=== PATIENT | female | born 1980 | race Caucasian/White ===

== ENCOUNTER → 2017-08-08 | Outpatient (CLI) | payer BC, OTHER ==
[2017-08-08 11:01] LABS: Basophils % (A) 0 %; Eosinophils # (A) 0.3 k/uL (0-0.7); Eosinophils % (A) 5 %; HCT 38.6 % (34.0-46.0); HGB 12.2 gm/dL (11.4-16.0); Lymphocytes # (A) 2.2 k/uL (1.0-4.8); Lymphocytes % (A) 32 %; MCHC 31.7 g/dL (31.0-37.0); MCV 91.7 fL (80.0-100.0); Mean Platelet Volume 7.9; Monocytes # (A) 0.5 k/uL (0-1.0); Monocytes % (A) 7 %; Neutrophils # (A) 3.7 k/uL (1.3-7.7); Neutrophils % (A) 54 %; Platelet Count 207 k/uL (150-450); RBC 4.22 m/uL (3.80-5.40); RDW 14.7 % (11.5-15.5); WBC 6.9 k/uL (3.8-10.6)
[2017-08-08 11:08] LABS: Potassium 4.5 mmol/L (3.5-5.1)
== END | disposition home or self-care (01) ==
LOC: LABPAT 10:17
PROVIDERS: ATTEND Orthopaedic Surgery
DX: Z01.818 Encounter for other preprocedural examination (principal); Z01.812 Encounter for preprocedural laboratory examination; M23.91 Unspecified internal derangement of right knee
CPT/HCPCS: 36415; 80051; 85025; 93005

== ENCOUNTER 2017-08-29 08:02 | Day surgery (SDC) | payer BC, OTHER ==
[2017-08-21 15:17] VITALS: BMI 51.4
--- NOTE | 2017-08-28 12:41 | HP ---
HISTORY AND PHYSICAL DATE OF SERVICE: 08/29/2017 Jennifer Lewis is a 37-year-old patient seen with right knee pain. We discussed options for treatment. She elected to proceed with right knee arthroscopy. Consent was obtained. PAST MEDICAL HISTORY: Seasonal allergies. PAST SURGICAL HISTORY: Cholecystectomy, right knee arthroscopy. DAILY MEDICATIONS: 1. Naprosyn. 2. Zyrtec. ALLERGIES: None reported. SOCIAL HISTORY: Patient currently smokes 1/2 pack of cigarettes daily. PHYSICAL EVALUATION RIGHT KNEE: Range of motion 0 to 115 degrees. Mild effusion. Tenderness medial joint line, tenderness lateral joint line. Positive medial Aaron's. Positive lateral Aaron's. Ligaments stable. Hip rotation without pain. Distal neurovascular exam intact. Radiographs of the right knee revealed moderate medial and moderate patellofemoral compartment osteoarthritis. MRI right knee medial meniscal tear and osteoarthritis. IMPRESSION: Internal derangement, right knee with medial meniscal tear. PLAN: Right knee arthroscopy with partial meniscectomy and debridement. MMODL / IJN: [id number] /
[~2017-08-29 08:02] MED LIST: DEXAMETHASONE SOD PHOSPHATE 10 MG/ML 1 ML VIAL IV ONE; LACTATED RINGERS 1,000 ML IV SCH; MIDAZOLAM 2 MG/2 ML VIAL IV PRN; ONDANSETRON 4 MG/2 ML VIAL IVP ONE
[2017-08-29] MEDS ORDERED: LIDOCAINE 1% 20 ML VIAL (10MG/ML) FOR IV START INTRADERMA ONE (08:06)
[2017-08-29] MEDS ORDERED: BUPIVACAINE (PF) 0.25% 30 ML VIAL SQ ONE ×2 (09:57→10:40)
[2017-08-29] MEDS ORDERED: SUCCINYLCHOLINE CHLORIDE VIAL 200 MG/10 ML VIAL IV ONE (10:04)
[2017-08-29] MEDS ORDERED: fentaNYL (PF) 50 MCG/ML 2 ML AMP ONE (10:04)
[2017-08-29] MEDS ORDERED: MIDAZOLAM 2 MG/2 ML VIAL ONE (10:04)
[2017-08-29] MEDS ORDERED: PROPOFOL 10 MG/ML 20 ML VIAL IV ONE (10:04)
[2017-08-29] MEDS ORDERED: LIDOCAINE 1% INJ 10MG/ML (20 ML MDV) ONE (10:04)
[2017-08-29] MEDS: HYDROmorphone 0.5 MG/0.5 ML SYRINGE IVP PRN ×4 (11:02→11:24)
--- NOTE | 2017-08-29 11:02 | P.OP ---
Date of Procedure: 08/29/17 Preoperative Diagnosis: Internal derangement right knee Postoperative Diagnosis: 1. Tear medial and lateral meniscus right knee 2. Grade 4 chondromalacia medial femoral condyle right knee 3. Grade 3/4 chondromalacia patella right knee 4. Reactive synovitis medial and suprapatellar compartments right knee Procedure(s) Performed: 1. Arthroscopic partial medial and lateral meniscectomy right knee 2. Arthroscopic chondroplasty medial femoral condyle right knee 3. Arthroscopic microfracture medial femoral condyle right knee 4. Arthroscopic chondroplasty lateral femoral condyle right knee 5. Arthroscopic partial synovectomy medial and suprapatellar compartments right knee Anesthesia: JOSE ALBERTOA, local Surgeon: Derrek Preston Estimated Blood Loss (ml): 10 Pathology: none sent Condition: stable Disposition: PACU Indications for Procedure: 37-year-old patient seen with progressive right knee pain. After having treatment options discussed, she elected to proceed with arthroscopy. Operative Findings: see description of procedure Description of Procedure: Patient was taken to the operative suite. Patient underwent a general anesthetic by the department of anesthesia. Patient was given preoperative antibiotics. The right lower extremity was placed in a well-padded arthroscopic leg marmolejo. The right leg was prepped and draped in the normal sterile orthopedic fashion. A lateral parapatellar and suprapatellar incision was made. Trochars were inserted. Arthroscopy was initiated. Suprapatellar pouch revealed diffuse thick reactive synovitis. The patellofemoral joint appeared to articulate congruently. There was grade 3/4 chondromalacia of both the patella and femoral sulcus with osteochondral tears present. The scope was guided into the medial gutter. No loose bodies or plica were identified. The scope was then guided into the medial compartment. A medial parapatellar incision was made. Trocar inserted followed by probe. There was a complex tear posterior horn medial meniscus. There were grade 4 chondromalacia changes of the medial femoral condyle with large osteochondral tears. There was grade 2 /3 chondromalacia tibial plateau. There was reactive synovitis anteriorly. I performed a partial medial meniscectomy down to stable tissue I performed a chondroplasty of the medial femoral condyle and partial synovectomy. There was grade 4 chondromalacia with exposed bone along the weightbearing surface medial femoral condyle. I performed a microfracture there. I debrided the edges again making sure we had no debris or unstable areas. The residual meniscus and osteochondral surface was found to be stable. Scope and probe were then guided into the intercondylar notch. Cruciates were identified, probed and found to be stable. The scope and probe were then guided into lateral compartment. There was a radial tear along the anterior horn lateral meniscus. There were grade 1/2 chondral malacia changes lateral compartment. No loose bodies or reactive synovitis. I debrided that meniscal tear down to stable tissue. The residual meniscus was stable. The scope was in guided back into the suprapatellar compartment. I introduced a motorized shaver into the super patellar compartment. I debrided some piecemeal fragments of meniscus. I performed a chondroplasty of the patella and femoral sulcus down to stable tissue. The residual osteochondral surface was stable. I now reintroduced the shaver and performed a partial synovectomy. Shaver was removed. I took more look on the entire knee, no residual debris. Instruments were now removed from the joint. The joint was infiltrated with .25% Marcaine. Steri-Strips were applied to the portal sites. Sterile dressings were applied. The patient was placed into a KRYSTAL hose. No tourniquet was utilized. The patient was awakened, transferred to a bed and taken to recovery stable satisfactory condition.
[2017-08-29 11:06] VITALS: TEMP 97.5
[2017-08-29] MEDS ORDERED: ONDANSETRON 4 MG/2 ML VIAL IVP ONE (11:07)
[2017-08-29] MEDS ORDERED: LACTATED RINGERS 1,000 ML IV ONE (11:12)
[2017-08-29] MEDS ORDERED: HYDROcodone/APAP 10-325MG 1 EACH TAB PO ONE (12:41)
[2017-08-29 13:04] VITALS: BP 135/79; RESP 18
[2017-08-29 13:20] VITALS: PULSE 54
== END 2017-08-29 14:18 | disposition home or self-care (01) ==
LOC: OR 08:02
PROVIDERS: ATTEND Orthopaedic Surgery
DX: S83.241A Other tear of medial meniscus, current injury, right knee, initial encounter (principal); S83.281A Other tear of lateral meniscus, current injury, right knee, initial encounter; X58.XXXA Exposure to other specified factors, initial encounter; M22.41 Chondromalacia patellae, right knee; M65.861 Other synovitis and tenosynovitis, right lower leg; Z79.1 Long term (current) use of non-steroidal anti-inflammatories (NSAID); Z79.899 Other long term (current) drug therapy; K21.9 Gastro-esophageal reflux disease without esophagitis; Z79.891 Long term (current) use of opiate analgesic; F17.210 Nicotine dependence, cigarettes, uncomplicated
CPT/HCPCS: 81025; 29880; 29879; J2250; J0330; J1100; J0690; J2405; J2001; J3010; J2704; J1170

== ENCOUNTER → 2017-12-28 | Outpatient (CLI) | payer BC, OTHER ==
--- NOTE | 2017-12-28 10:39 | MM ---
Reason for exam: screening (asymptomatic). Baseline mammogram. History: Took hormonal contraceptives for 1 year beginning at age 22. Physical Findings: Nurse did not find any significant physical abnormalities on exam. MG Screening Mammo w CAD Bilateral CC and MLO view(s) were taken. There are scattered fibroglandular densities. Finding: There are few typically benign round calcifications in the anterior position of both breasts. There is no discrete abnormality. These results were verbally communicated with the patient and result sheet given to the patient on 12/28/17. ASSESSMENT: Benign, BI-RAD 2 RECOMMENDATION: Routine screening mammogram of both breasts at age 39.
== END | disposition home or self-care (01) ==
LOC: RADMAMWWP 09:50
PROVIDERS: ATTEND Obstetrics & Gynecology
DX: Z12.31 Encounter for screening mammogram for malignant neoplasm of breast (principal)
CPT/HCPCS: 77067

== ENCOUNTER → 2018-04-03 | Outpatient (CLI) | payer OTHER ==
--- NOTE | 2018-04-03 18:43 | US ---
EXAMINATION TYPE: US venous doppler duplex LE DATE OF EXAM: 04/03/2018 6:21 PM COMPARISON: NONE CLINICAL HISTORY: M79.89 Bilateral leg swelling.bilateral edema SIDE PERFORMED: Bilateral TECHNIQUE: The lower extremity deep venous system is examined utilizing real time linear array sonog tommy with graded compression, doppler sonography and color-flow sonography. VESSELS IMAGED: External Iliac Vein (EIV) Common Femoral Vein Deep Femoral Vein Greater Saphenous Vein * Femoral Vein Popliteal Vein Small Saphenous Vein * Proximal Calf Veins (* superficial vessels) Right Leg: Negative for DVT Left Leg: Negative for DVT No evidence of DVT bilateral legs. IMPRESSION: Negative exam. No evidence of deep venous thrombosis in both legs.
== END | disposition home or self-care (01) ==
LOC: RADUSMAIN 17:52
PROVIDERS: ATTEND Family Medicine
DX: M79.89 Other specified soft tissue disorders (principal)
CPT/HCPCS: 93970

== ENCOUNTER → 2018-06-11 | Outpatient (CLI) | payer OTHER ==
--- NOTE | 2018-06-12 07:52 | MR ---
EXAMINATION TYPE: MR brain wo con DATE OF EXAM: 06/11/2018 COMPARISON: NONE HISTORY: F/u Pseudo tumor, optic atrophy TECHNIQUE: Multiplanar, multisequence imaging of the brain and brainstem is performed without IV cont rast. FINDINGS: Diffusion weighted images demonstrate no evidence of a recent infarct or other diffusion abnormality. There is no extraaxial fluid collection or significant white matter signal abnormality. The ventricu lar system and cisternal spaces are normal in size and appearance. The brain volume is age appropria te. Midline structures demonstrate empty sella appearance . The craniocervical junction appears within n ormal limits. Normal vascular flow voids are present. The globes appear intact bilaterally. Optic ner ves appear symmetric intraconal region bilaterally. IMPRESSION: Empty sella appearance otherwise unremarkable study.
== END | disposition home or self-care (01) ==
LOC: RADMRIMAIN 20:15
PROVIDERS: ATTEND Psychiatry & Neurology Neurology
DX: E23.6 Other disorders of pituitary gland (principal)
CPT/HCPCS: 70551

== ENCOUNTER → 2019-08-14 | Outpatient (CLI) | payer OTHER ==
--- NOTE | 2019-08-15 06:09 | MR ---
EXAMINATION TYPE: MR knee LT wo con DATE OF EXAM: 08/14/2019 COMPARISON: None HISTORY: Left knee pain Multiplanar multiecho imaging of the left knee was performed with no contrast. There is large knee joint effusion. The anterior and posterior cruciate ligaments are intact. The med ial and lateral menisci appear intact. There is subcutaneous edema around the knee. There are rounded areas of decreased signal with sharp margins on the T1 images involving the distal femoral metaphysi s. These have high signal on the proton density images and could relate to bone cysts. The collateral ligaments are intact. The patella is intact. I see no fracture. IMPRESSION: Moderate sized knee joint effusion. No evidence of ligament or meniscal tear. Sharply marginated lesi ons in the distal femur probably benign bone cysts.
== END | disposition home or self-care (01) ==
LOC: RADMRIMAIN 14:46
PROVIDERS: ATTEND Orthopaedic Surgery Sports Medicine
DX: M25.462 Effusion, left knee (principal); M89.9 Disorder of bone, unspecified

== ENCOUNTER 2020-05-01 18:15 | Inpatient (IN) | payer OTHER ==
[2020-05-01] MEDS ORDERED: IBUPROFEN 600 MG TAB PO STA (18:34)
[2020-05-01] MEDS ORDERED: ACETAMINOPHEN TAB 325 MG TAB PO STA (18:34)
[2020-05-01 18:58] LABS: Basophils # (A) 0.1 k/uL (0-0.2); Basophils % (A) 1 %; Eosinophils # (A) 0.2 k/uL (0-0.7); Eosinophils % (A) 2 %; HCT 41.4 % (34.0-46.0); HGB 13.2 gm/dL (11.4-16.0); Lymphocytes # (A) 1.4 k/uL (1.0-4.8); Lymphocytes % (A) 13 %; MCH 28.2 pg (25.0-35.0); MCHC 31.9 g/dL (31.0-37.0); MCV 88.2 fL (80.0-100.0); Mean Platelet Volume 7.7; Monocytes # (A) 0.8 k/uL (0-1.0); Monocytes % (A) 7 %; Neutrophils # (A) 8.6 k/uL (1.3-7.7); Neutrophils % (A) 77 %; Platelet Count 209 k/uL (150-450); RBC 4.69 m/uL (3.80-5.40); RDW 13.3 % (11.5-15.5); WBC 11.2 k/uL (3.8-10.6)
[2020-05-01 19:10] LABS: ALT 19 U/L (4-34); AST 31 U/L (14-36); African American GFR (CKD) >90 (>60 ml/min/1.73 sqM); Albumin 3.7 g/dL (3.5-5.0); Alkaline Phosphatase 97 U/L (38-126); Anion Gap 7 mmol/L; Blood Urea Nitrogen 9 mg/dL (7-17); Calcium 8.6 mg/dL (8.4-10.2); Carbon Dioxide 23 mmol/L (22-30); Chloride 103 mmol/L (98-107); Glucose 90 mg/dL (74-99); Non-African American GFR(CKD) 86 (>60 ml/min/1.73 sqM); Sodium 133 mmol/L (137-145); Total Bilirubin 0.6 mg/dL (0.2-1.3); Total Protein 6.6 g/dL (6.3-8.2)
[2020-05-01 19:13] LABS: Potassium 3.9 mmol/L (3.5-5.1)
[2020-05-01 19:40] LABS: Appearance,Urine Cloudy (Clear); Bacteria,Urine Rare /hpf; Bilirubin,Urine Negative (Negative); Blood,Urine Moderate (Negative); Color,Urine Yellow; Glucose,Urine (UA) Negative (Negative); Hyaline Casts,Urine 1 /lpf (0-2); Ketones,Urine Negative (Negative); Leukocyte Esterase,Urine Negative (Negative); Mucus,Urine Rare /hpf; Nitrite,Urine Negative (Negative); PH, Urine 5.5 (5.0-8.0); Protein,Urine Trace (Negative); RBC,Urine <1 /hpf (0-5); Specific Gravity,Urine 1.026 (1.001-1.035); Squamous Epithelial Cell,Urine 12 /hpf (0-4); WBC,Urine 1 /hpf (0-5)
--- NOTE | 2020-05-01 20:08 | US ---
EXAMINATION TYPE: US venous doppler duplex LE RT DATE OF EXAM: 05/01/2020 6:36 PM COMPARISON: US 2018 CLINICAL HISTORY: pain, cellulitius. Right lower leg pain, swelling and redness SIDE PERFORMED: Right TECHNIQUE: The lower extremity deep venous system is examined utilizing real time linear array sonog tommy with graded compression, doppler sonography and color-flow sonography. VESSELS IMAGED: External Iliac Vein (EIV) Common Femoral Vein Deep Femoral Vein Greater Saphenous Vein * Femoral Vein Popliteal Vein Small Saphenous Vein * Proximal Calf Veins (* superficial vessels) Right Leg: Appears negative for DVT IMPRESSION: No evidence of deep vein thrombosis in the right leg.
[2020-05-01] MEDS ORDERED: VANCOMYCIN IV PER PHARMACY 1 EACH MISC MISCELLANE PRN (20:40)
[2020-05-01] MEDS ORDERED: NALOXONE 0.4 MG/ML 1 ML VIAL IV PRN (20:44)
[2020-05-01] MEDS ORDERED: IBUPROFEN 600 MG TAB PO PRN (20:44)
[2020-05-01] MEDS ORDERED: ACETAMINOPHEN TAB 325 MG TAB PO PRN (20:44)
--- NOTE | 2020-05-01 20:48 | ED ---
General Adult HPI - General Chief complaint: Skin/Abscess/Foreign Body Stated complaint: cellulitis Time Seen by Provider: 05/01/20 18:31 Source: patient, RN notes reviewed, old records reviewed Mode of arrival: ambulatory Limitations: no limitations - History of Present Illness Initial comments: 39-year-old female patient resents to emergency department with chief complaint right lower extremity cellulitis ongoing for the last 3 days. Patient has had this before in the past. Has been having some generalized myalgias feeling feverish at home. Denies any cough congestion dysuria or any other infectious symptoms. Denies chest pain shortness of breath. Systemic: Pt denies fatigue, rash. Pt denies weakness, night sweats, weight loss . Neuro: Pt denies headache, visual disturbances, syncope or pre-syncope. HEENT: Pt denies ocular discharge or irritation, otalgia, rhinorrhea, pharyngitis or notable lymphadenopathy. Cardiopulmonary: Pt denies chest pain, SOB, heart palpitations, dyspnea on exertion. Abdominal/GI: Pt denies abdominal pain, n/v/d. : Pt denies dysuria, burning w/ urination, frequency/urgency. Denies new onset urinary or bowel incontinence. MSK: Pt denies myalgia, loss of strength or function in extremities. Neuro: Pt denies new onset weakness, paresthesias. - Related Data Home Medications Medication Instructions Recorded Confirmed Cetirizine HCl [Zyrtec ODT] 10 mg PO DAILY PRN 08/21/17 08/29/17 Ergocalciferol (Vitamin D2) 50,000 unit PO Q7D 08/21/17 08/29/17 [Vitamin D2] Furosemide [Lasix] 20 mg PO DAILY PRN 08/21/17 08/29/17 HYDROcodone/APAP 10-325MG [[place] 1 tab PO Q4HR PRN 08/21/17 08/29/17 10-325] Naproxen 500 mg PO DAILY PRN 08/21/17 08/29/17 Nasal Decongestant 1 sprays NASAL DAILY PRN 08/21/17 08/29/17 Pantoprazole [Protonix] 40 mg PO DAILY PRN 08/21/17 08/29/17 Potassium Chloride [Klor-Con 10] 10 meq PO DAILY PRN 08/21/17 08/29/17 Allergies Allergy/AdvReac Type Severity Reaction Status Date / Time No Known Allergies Allergy Verified 05/01/20 18:25 Review of Systems ROS Statement: Those systems with pertinent positive or pertinent negative responses have been documented in the HPI. ROS Other: All systems not noted in ROS Statement are negative. Past Medical History Additional Past Medical History / Comment(s): CELLULITIS. HIGH CHOLESTROL History of Any Multi-Drug Resistant Organisms: MRSA Date of last positivie culture/infection: 2015 MDRO Source:: RIGHT ARMPIT Additional Past Surgical History / Comment(s): KNEE SURGERY 2018 Past Psychological History: No Psychological Hx Reported Smoking Status: Current every day smoker Past Alcohol Use History: Occasional Past Drug Use History: None Reported General Exam - General Exam Comments Initial Comments: Constitutional: NAD, AOX3, Pt has pleasant affect. HEENT: NC/AT, trachea midline, neck supple, no lymphadenopathy. External ears appear normal, without discharge. Mucous membranes moist. Eyes PERRLA, EOM intact. There is no scleral icterus. No pallor noted. Cardiopulmonary: RRR, no murmurs, rubs or gallops, no JVD noted. Lungs CTAB in anterior and posterior sanderson. No peripheral edema. Abdominal exam: Abdomen soft and non-distended. Abdomen non-tender to palpation in all 4 quadrants. Bowel sounds active in LLQ. No hepatosplenomegaly. No ecchymosis Neuro: CN II-XII grossly intact. No nuchal rigidity. MSK: Right lower extremity cellulitis is noted. Some mild tenderness to the area. Extremities are warm and well-perfused. Distal pulses are intact and equal. No left posterior calf tenderness. Sensation intact in upper and lower extremities. Full active ROM in upper and lower extremities, 5/5 stregnth. Limitations: no limitations Course Vital Signs 05/01/20 05/01/20 18:19 20:05 Temperature 101.4 F H 101.1 F H Pulse Rate 90 87 Respiratory 18 16 Rate Blood Pressure 136/91 113/56 O2 Sat by Pulse 98 100 Oximetry Medical Decision Making - Medical Decision Making 39-year-old female patient with CVG complaint cellulitis. Patient was sent displayed fever patient administered antipyretic. Physical exam confirms a lad andry slid right lower extremity. Left investigations a leukocytosis and left shift. Ultrasound is negative for DVT. Patient initiated on ceftriaxone and vancomycin. Will be admitted for further evaluation. Case discussed with Dr. Walters. Admitted to [facility] - Lab Data Result diagrams: 05/01/20 18:49 05/01/20 18:49 Lab Results 05/01/20 05/01/20 05/01/20 Range/Units 18:34 18:37 18:49 WBC 11.2 H (3.8-10.6) k/uL RBC 4.69 (3.80-5.40) m/uL Hgb 13.2 (11.4-16.0) gm/dL Hct 41.4 (34.0-46.0) % MCV 88.2 (80.0-100.0) fL MCH 28.2 (25.0-35.0) pg MCHC 31.9 (31.0-37.0) g/dL RDW 13.3 (11.5-15.5) % Plt Count 209 (150-450) k/uL Neutrophils % 77 % Lymphocytes % 13 % Monocytes % 7 % Eosinophils % 2 % Basophils % 1 % Neutrophils # 8.6 H (1.3-7.7) k/uL Lymphocytes # 1.4 (1.0-4.8) k/uL Monocytes # 0.8 (0-1.0) k/uL Eosinophils # 0.2 (0-0.7) k/uL Basophils # 0.1 (0-0.2) k/uL Sodium (137-145) mmol/L Potassium (3.5-5.1) mmol/L Chloride (98-107) mmol/L Carbon Dioxide (22-30) mmol/L Anion Gap mmol/L BUN (7-17) mg/dL Creatinine (0.52-1.04) mg/dL Est GFR (CKD-EPI)AfAm (>60 ml/min/1.73 sqM) Est GFR (CKD-EPI)NonAf (>60 ml/min/1.73 sqM) Glucose (74-99) mg/dL Plasma Lactic Acid Sunil (0.7-2.0) mmol/L Calcium (8.4-10.2) mg/dL Total Bilirubin (0.2-1.3) mg/dL AST (14-36) U/L ALT (4-34) U/L Alkaline Phosphatase (38-126) U/L Total Protein (6.3-8.2) g/dL Albumin (3.5-5.0) g/dL Urine Color Yellow Urine Appearance Cloudy H (Clear) Urine pH 5.5 (5.0-8.0) Ur Specific [place] 1.026 (1.001-1.035) Urine Protein Trace H (Negative) Urine Glucose (UA) Negative (Negative) Urine Ketones Negative (Negative) Urine Blood Moderate H (Negative) Urine Nitrite Negative (Negative) Urine Bilirubin Negative (Negative) Urine Urobilinogen 2.0 (<2.0) mg/dL Ur Leukocyte Esterase Negative (Negative) Urine RBC <1 (0-5) /hpf Urine WBC 1 (0-5) /hpf Ur Squamous Epith Cells 12 H (0-4) /hpf Urine Bacteria Rare H (None) /hpf Hyaline Casts 1 (0-2) /lpf Urine Mucus Rare H (None) /hpf Urine HCG, Qual Not Detected (Not Detectd) 05/01/20 05/01/20 Range/Units 18:49 18:49 WBC (3.8-10.6) k/uL RBC (3.80-5.40) m/uL Hgb (11.4-16.0) gm/dL Hct (34.0-46.0) % MCV (80.0-100.0) fL MCH (25.0-35.0) pg MCHC (31.0-37.0) g/dL RDW (11.5-15.5) % Plt Count (150-450) k/uL Neutrophils % % Lymphocytes % % Monocytes % % Eosinophils % % Basophils % % Neutrophils # (1.3-7.7) k/uL Lymphocytes # (1.0-4.8) k/uL Monocytes # (0-1.0) k/uL Eosinophils # (0-0.7) k/uL Basophils # (0-0.2) k/uL Sodium 133 L (137-145) mmol/L Potassium 3.9 (3.5-5.1) mmol/L Chloride 103 (98-107) mmol/L Carbon Dioxide 23 (22-30) mmol/L Anion Gap 7 mmol/L BUN 9 (7-17) mg/dL Creatinine 0.85 (0.52-1.04) mg/dL Est GFR (CKD-EPI)AfAm >90 (>60 ml/min/1.73 sqM) Est GFR (CKD-EPI)NonAf 86 (>60 ml/min/1.73 sqM) Glucose 90 (74-99) mg/dL Plasma Lactic Acid Sunil 1.3 (0.7-2.0) mmol/L Calcium 8.6 (8.4-10.2) mg/dL Total Bilirubin 0.6 (0.2-1.3) mg/dL AST 31 (14-36) U/L ALT 19 (4-34) U/L Alkaline Phosphatase 97 (38-126) U/L Total Protein 6.6 (6.3-8.2) g/dL Albumin 3.7 (3.5-5.0) g/dL Urine Color Urine Appearance (Clear) Urine pH (5.0-8.0) Ur Specific [place] (1.001-1.035) Urine Protein (Negative) Urine Glucose (UA) (Negative) Urine Ketones (Negative) Urine Blood (Negative) Urine Nitrite (Negative) Urine Bilirubin (Negative) Urine Urobilinogen (<2.0) mg/dL Ur Leukocyte Esterase (Negative) Urine RBC (0-5) /hpf Urine WBC (0-5) /hpf Ur Squamous Epith Cells (0-4) /hpf Urine Bacteria (None) /hpf Hyaline Casts (0-2) /lpf Urine Mucus (None) /hpf Urine HCG, Qual (Not Detectd) Disposition Clinical Impression: Cellulitis Disposition: ADMITTED IP TO THIS [facility] Condition: Serious Is patient prescribed a controlled substance at d/c from ED?: No Referrals: Eloisa Renae MD [Primary Care Provider] - 1-2 days
[2020-05-01] MEDS ORDERED: VANCOMYCIN 2,250 MG in SODIUM CHLORIDE 0.9% 500 ML 500 ML IVPB ONE (21:00)
[2020-05-01] MEDS: SODIUM CHLORIDE 0.9% 1,000 ML IV SCH (21:15)
[2020-05-01] MEDS ORDERED: PANTOPRAZOLE 40 MG TABLET PO PRN (22:25)
[2020-05-01] MEDS ORDERED: HYDROcodone/APAP 10-325MG 1 EACH TAB PO PRN (22:25)
[2020-05-01] MEDS ORDERED: CYCLOBENZAPRINE 10 MG TAB PO PRN (23:00)
[2020-05-02] MEDS: SODIUM CHLORIDE 0.9% 1,000 ML IV SCH ×3 (04:36→19:00)
[2020-05-02] MEDS: hydrOXYzine HCL 25 MG TAB PO SCH ×3 (08:13→21:49)
[2020-05-02] MEDS: VANCOMYCIN 2,250 MG in SODIUM CHLORIDE 0.9% 500 ML 500 ML IVPB SCH ×2 (08:14→21:49)
[2020-05-02 08:32] LABS: African American GFR (CKD) >90 (>60 ml/min/1.73 sqM); Non-African American GFR(CKD) >90 (>60 ml/min/1.73 sqM)
[2020-05-02] MEDS: HYDROcodone/APAP 10-325MG 1 EACH TAB PO SCH ×2 (15:05→21:48)
--- NOTE | 2020-05-02 15:15 | P.HPIM ---
History of Present Illness H&P Date: 05/02/20 Chief Complaint: Pain and swelling and redness right lower extremity 39-year-old female patient resents to emergency department with chief complaint right lower extremity cellulitis ongoing for the last 3 days. Patient has had this before in the past. Has been having some generalized myalgias feeling feverish at home. Denies any cough congestion dysuria or any other infectious symptoms. Denies chest pain shortness of breath. Upon evaluation in ED patient was found to have significant erythema and induration and swelling of right lower extremity with elevated white blood count and left shift; ultrasound of the leg was done which was negative for DVT; patient is started on IV ceftriaxone and vancomycin and is admitted for further treatment Review of Systems REVIEW OF SYSTEMS: CONSTITUTIONAL: No fever, no malaise, no fatigue. HEENT: No recent visual problems or hearing problems. Denied any sore throat. CARDIOVASCULAR: No chest pain, orthopnea, PND, no palpitations, no syncope. PULMONARY: No shortness of breath, no cough, no hemoptysis. GASTROINTESTINAL: No diarrhea, no nausea, no vomiting, no abdominal pain. NEUROLOGICAL: No headaches, no weakness, no numbness. HEMATOLOGICAL: Denies any bleeding or petechiae. GENITOURINARY: Denies any burning micturition, frequency, or urgency. MUSCULOSKELETAL/RHEUMATOLOGICAL: Denies any joint pain, swelling, or any muscle pain. ENDOCRINE: Denies any polyuria or polydipsia. The rest of the 14-point review of systems is negative. Past Medical History Additional Past Medical History / Comment(s): CELLULITIS. HIGH CHOLESTROL History of Any Multi-Drug Resistant Organisms: MRSA Date of last positivie culture/infection: 2015 MDRO Source:: RIGHT ARMPIT Additional Past Surgical History / Comment(s): KNEE SURGERY 2018 Past Psychological History: No Psychological Hx Reported Smoking Status: Current every day smoker Past Alcohol Use History: Occasional Past Drug Use History: None Reported Medications and Allergies Home Medications Medication Instructions Recorded Confirmed Type Furosemide [Lasix] 20 mg PO DAILY PRN 08/21/17 05/01/20 History HYDROcodone/APAP 10-325MG [[place] 1 tab PO TID 08/21/17 05/01/20 History 10-325] Pantoprazole [Protonix] 40 mg PO DAILY PRN 08/21/17 05/01/20 History Atorvastatin [Lipitor] 20 mg PO HS 10/03/20 10/03/20 History Cetirizine HCl [Zyrtec] 10 mg PO DAILY 05/01/20 05/01/20 History Cyclobenzaprine [Flexeril] 10 mg PO BID 05/01/20 05/01/20 History hydrOXYzine HCL 25 mg PO TID 05/01/20 05/01/20 History Allergies Allergy/AdvReac Type Severity Reaction Status Date / Time No Known Allergies Allergy Verified 05/01/20 21:59 Physical Exam Vitals: Vital Signs Temp Pulse Pulse Resp BP BP Pulse Ox 05/02/20 08:03 99 F 82 16 119/86 99 05/02/20 02:57 97.6 F 79 18 110/75 95 05/01/20 21:18 98.7 F 96 18 102/72 96 05/01/20 20:05 101.1 F H 87 16 113/56 100 05/01/20 18:19 101.4 F H 90 18 136/91 98 Intake and Output 05/01/20 05/02/20 05/02/20 22:59 06:59 14:59 Intake Total 630 750 Balance 630 750 Intake: Intake, IV Titration 630 500 Amount Sodium Chloride 0.9% 1, 130 000 ml @ 130 mls/hr IV . Q7H42M ZACARIAS Rx#:[id number] Vancomycin 2,250 mg In 500 500 Sodium Chloride 0.9% 500 ml 500 ml @ 167 mls/hr IVPB Q12H ZACARIAS Rx#: [id number] Oral 250 Other: Voiding Method Toilet Toilet # Voids 1 Weight 156.489 kg Constitutional: NAD, AOX3, Pt has pleasant affect. HEENT: NC/AT, trachea midline, neck supple, no lymphadenopathy. External ears appear normal, without discharge. Mucous membranes moist. Eyes PERRLA, EOM intact. There is no scleral icterus. No pallor noted. Cardiopulmonary: RRR, no murmurs, rubs or gallops, no JVD noted. Lungs CTAB in anterior and posterior sanderson. No peripheral edema. Abdominal exam: Abdomen soft and non-distended. Abdomen non-tender to palpation in all 4 quadrants. Bowel sounds active in LLQ. No hepatosplenomegaly. No ecchymosis Neuro: CN II-XII grossly intact. No nuchal rigidity. MSK: Right lower extremity cellulitis is noted. Some mild tenderness to the are a. Extremities are warm and well-perfused. Distal pulses are intact and equal. No left posterior calf tenderness. Sensation intact in upper and lower extremities. Full active ROM in upper and lower extremities, 5/5 stregnth. Results CBC & Chem 7: 05/01/20 18:49 05/02/20 07:56 Labs: Abnormal Lab Results - Last 24 Hours (Table) 05/01/20 05/01/20 05/01/20 Range/Units 18:34 18:49 18:49 WBC 11.2 H (3.8-10.6) k/uL Neutrophils # 8.6 H (1.3-7.7) k/uL Sodium 133 L (137-145) mmol/L Urine Appearance Cloudy H (Clear) Urine Protein Trace H (Negative) Urine Blood Moderate H (Negative) Ur Squamous Epith Cells 12 H (0-4) /hpf Urine Bacteria Rare H (None) /hpf Urine Mucus Rare H (None) /hpf Thrombosis Risk Factor Assmnt - Choose All That Apply Any of the Below Risk Factors Present?: Yes Each Factor Represents 1 point: Obesity (BMI >25), Swollen legs (current) Other Risk Factors: No Other congenital or acquired thrombophilia - If yes, enter type in comment: No Thrombosis Risk Factor Assessment Total Risk Factor Score: 2 Thrombosis Risk Factor Assessment Level: Low Risk Assessment and Plan Assessment: 1. Severe cellulitis right lower extremity - Patient is started on IV Rocephin and vancomycin from ED; we will continue with current antibiotic therapy and consult ID for further recommendations 2. Leukocytosis; secondary to 1; monitor CBC, trend pro-calcitonin and CRP 3. Mild hyponatremia; we will start patient on slow IV hydration with normal saline at a rate of 75 mL an hour; monitor electrolytes closely 4. Morbid obesity; counseling done 5. Seasonal ALLERGIES; patient takes Zyrtec 10 mg daily when necessary DVT prophylaxis; SCDs CODE STATUS; full code
[2020-05-02] MEDS: ATORVASTATIN 20 MG TAB PO SCH (21:48)
--- NOTE | 2020-05-03 00:07 | P.CONS ---
History of Present Illness - Reason for Consult Consult date: 05/02/20 Right lower extremity cellulitis Requesting physician: Yousif Cho - Chief Complaint Right leg swelling and redness x 3 days - History of Present Illness Patient is 39-year-old female with a past medical history significant for right lower extremity cellulitis, patient is presenting to [facility] ER yesterday for evaluation of right lower extremity pain swelling and redness that started about 3 days ago and has progressively increased in intensity, patient described the pain to the right leg to be probably and sharp with intensity of almost 6-7 out of 10 and no radiation patient currently do not have any open wound or any drainage to be combating a fever and chills on arrival to the patient did have a fever of 101F she did have elevated white count and mild tachycardia patient did have right lower extremity Doppler was negative for DVT she was started on Rocephin and vancomycin has been admitted to the hospital infection disease was consulted for the management of antibiotic therapy Review of Systems Positive point has been mentioned in the HPI rest of the systems are negative Past Medical History Additional Past Medical History / Comment(s): CELLULITIS. HIGH CHOLESTROL History of Any Multi-Drug Resistant Organisms: MRSA Year Discovered:: 2016 MDRO Source:: RIGHT ARMPIT Additional Past Surgical History / Comment(s): KNEE SURGERY 2018 Past Psychological History: No Psychological Hx Reported Smoking Status: Current every day smoker Past Alcohol Use History: Occasional Past Drug Use History: None Reported Medications and Allergies Home Medications Medication Instructions Recorded Confirmed Type Furosemide [Lasix] 20 mg PO DAILY PRN 08/21/17 05/01/20 History HYDROcodone/APAP 10-325MG [[place] 1 tab PO TID 08/21/17 05/01/20 History 10-325] Pantoprazole [Protonix] 40 mg PO DAILY PRN 08/21/17 05/01/20 History Atorvastatin [Lipitor] 20 mg PO HS 05/01/20 05/01/20 History Cetirizine HCl [Zyrtec] 10 mg PO DAILY 05/01/20 05/01/20 History Cyclobenzaprine [Flexeril] 10 mg PO BID 05/01/20 05/01/20 History hydrOXYzine HCL 25 mg PO TID 05/01/20 05/01/20 History Allergies Allergy/AdvReac Type Severity Reaction Status Date / Time No Known Allergies Allergy Verified 05/01/20 21:59 Physical Exam Vitals: Vital Signs Temp Pulse Pulse Resp BP BP Pulse Ox 05/02/20 14:47 98.6 F 85 16 103/55 99 05/02/20 08:03 99 F 82 16 119/86 99 05/02/20 02:57 97.6 F 79 18 110/75 95 05/01/20 21:18 98.7 F 96 18 102/72 96 05/01/20 20:05 101.1 F H 87 16 113/56 100 05/01/20 18:19 101.4 F H 90 18 136/91 98 Intake and Output 05/02/20 05/02/20 05/02/20 06:59 14:59 22:59 Intake Total 750 Balance 750 Intake: Intake, IV Titration 500 Amount Vancomycin 2,250 mg In 500 Sodium Chloride 0.9% 500 ml 500 ml @ 167 mls/hr IVPB Q12H [facility] Rx#: [id number] Oral 250 Other: Voiding Method Toilet Toilet Toilet # Voids 1 1 GENERAL DESCRIPTION: Middle-aged female lying in bed, no distress. No tachypnea or accessory muscle of respiration use. HEENT: Shows Pallor , no scleral icterus. Oral mucous membrane is dry. No pharyngeal erythema or thrush NECK: Trachea central, no thyromegaly. LUNGS: Unlabored breathing. Clear to auscultation anteriorly. No wheeze or crackle. HEART: S1, S2, regular rate and rhythm. No loud murmur ABDOMEN: Soft, no tenderness , guarding or rigidity, no organomegaly EXTREMITIES: Right lower extremity with diffuse swelling and redness or any drainage. SKIN: No rash, no masses palpable. NEUROLOGICAL: The patient is awake, alert, oriented x3, mood and affect normal. Results CBC & Chem 7: 05/01/20 18:49 05/02/20 07:56 Labs: Abnormal Lab Results - Last 24 Hours (Table) 05/01/20 05/01/20 05/01/20 Range/Units 18:34 18:49 18:49 WBC 11.2 H (3.8-10.6) k/uL Neutrophils # 8.6 H (1.3-7.7) k/uL Sodium 133 L (137-145) mmol/L Urine Appearance Cloudy H (Clear) Urine Protein Trace H (Negative) Urine Blood Moderate H (Negative) Ur Squamous Epith Cells 12 H (0-4) /hpf Urine Bacteria Rare H (None) /hpf Urine Mucus Rare H (None) /hpf Assessment and Plan Assessment: 1- patient admitted hospital with sepsis in this patient did have fever tachycardia and elevated white count source of acute right lower extremity cellulitis in this patient who did have diffuse swelling and redness likely representing streptococcal cellulitis clinically doubt MRSA or gram-negative infection (1) Sepsis Current Visit: Yes Status: Acute Code(s): A41.9 - SEPSIS, UNSPECIFIED OR GANISM SNOMED Code(s): 08980090 (2) Cellulitis of right lower extremity Current Visit: Yes Status: Acute Code(s): L03.115 - CELLULITIS OF RIGHT LOWER LIMB SNOMED Code(s): 584926946 Plan: 1- discontinue Rocephin and vancomycin 2- 2 the patient on cefazolin 2 g every 8 hours 3-Cristopher wrap to the leg from just above the toe to below the knee We will follow on clinical condition and cultures to further adjust medication if needed Thank you for this consultation will follow this patient with you Time with Patient: Greater than 30
[2020-05-03] MEDS: SODIUM CHLORIDE 0.9% 1,000 ML IV SCH ×3 (04:34→19:00)
[2020-05-03] MEDS: HYDROcodone/APAP 10-325MG 1 EACH TAB PO SCH ×3 (08:01→22:14)
[2020-05-03] MEDS: hydrOXYzine HCL 25 MG TAB PO SCH ×3 (08:02→22:14)
[2020-05-03 09:35] LABS: African American GFR (CKD) >90 (>60 ml/min/1.73 sqM); Anion Gap 5 mmol/L; Blood Urea Nitrogen 7 mg/dL (7-17); Calcium 8.1 mg/dL (8.4-10.2); Carbon Dioxide 24 mmol/L (22-30); Chloride 106 mmol/L (98-107); Glucose 116 mg/dL (74-99); Non-African American GFR(CKD) >90 (>60 ml/min/1.73 sqM); Potassium 3.9 mmol/L (3.5-5.1); Sodium 135 mmol/L (137-145)
[2020-05-03 12:28] LABS: C Reactive Protein 154.9 mg/L (<10.0)
[2020-05-03] MEDS: ATORVASTATIN 20 MG TAB PO SCH (20:39)
--- NOTE | 2020-05-03 23:39 | PN ---
PROGRESS NOTE DATE OF SERVICE: 05/03/2020 REASON FOR FOLLOWUP: Right lower extremity cellulitis. INTERVAL HISTORY: The patient is currently afebrile. The patient is breathing comfortably. Pain and discomfort in the right leg though slightly decreased in intensity. No nausea, no vomiting. No abdominal pain or diarrhea. PHYSICAL EXAMINATION: Blood pressure 136/72 with a pulse of 77, temperature 98. She is 96% on room air. General description is a middle-aged female lying in bed in no distress. RESPIRATORY SYSTEM: Unlabored breathing, clear to auscultation anteriorly. HEART: S1, S2. Regular rate and rhythm. ABDOMEN: Soft, no tenderness. Right leg swelling and redness minimally decreased. LABS: Creatinine 0.68. DIAGNOSTIC IMPRESSION AND PLAN: Patient with acute right lower extremity cellulitis in this patient who did have diffuse swelling and redness. The patient seemed to have shown some clinical improvement. We will continue the patient on cefazolin and if patient continues to improve hopefully switch her to oral. Continue with supportive care. MMODL / IJN: [id number] /
[2020-05-04 05:51] VITALS: RESP 16
[2020-05-04] MEDS: SODIUM CHLORIDE 0.9% 1,000 ML IV SCH ×3 (06:03→18:18)
[2020-05-04] MEDS: HYDROcodone/APAP 10-325MG 1 EACH TAB PO SCH ×3 (07:39→21:39)
[2020-05-04] MEDS: hydrOXYzine HCL 25 MG TAB PO SCH ×3 (07:40→21:38)
[2020-05-04 07:58] LABS: African American GFR (CKD) >90 (>60 ml/min/1.73 sqM); Non-African American GFR(CKD) >90 (>60 ml/min/1.73 sqM)
--- NOTE | 2020-05-04 10:18 | P.PN ---
Subjective Progress Note Date: 05/03/20 39-year-old pleasant obese female is admitted for us and let us of the right leg and patient had similar cellulitis in the past as well. Patient is on ceftezole and which will be continued. Constitutional: Denied any fatigue denied any fever. Cardio vascular: denied any chest pain, palpitations Gastrointestinal denied any nausea vomiting Pulmonary: Denied any shortness of breath cough Neurologic denied any new focal deficits All inpatient medications were reviewed and appropriate changes in these me dications as dictated in the interval history and assessment and plan. Objective - Vital Signs Vital signs: Vital Signs Temp 98.3 F 05/04/20 07:37 Pulse 78 05/04/20 07:37 Resp 16 05/04/20 07:37 BP 149/88 05/04/20 07:37 Pulse Ox 96 05/04/20 07:37 Intake & Output 05/03/20 05/04/20 05/04/20 18:59 06:59 18:59 Intake Total 200 200 Balance 200 200 Intake: Oral 200 200 Other: Voiding Method Toilet Toilet # Voids 1 1 1 - Exam PHYSICAL EXAMINATION: GENERAL: The patient is alert and oriented x3, not in any acute distress. Obese. HEENT: Pupils are round and equally reacting to light. EOMI. No scleral icterus. No conjunctival pallor. Normocephalic, atraumatic. No pharyngeal erythema. No thyromegaly. CARDIOVASCULAR: S1 and S2 present. No murmurs, rubs, or gallops. PULMONARY: Chest is clear to auscultation, no wheezing or crackles. ABDOMEN: Soft, nontender, nondistended, normoactive bowel sounds. No palpable organomegaly. MUSCULOSKELETAL: No joint swelling or deformity. EXTREMITIES: No cyanosis, clubbing, bilateral lower leg swelling NEUROLOGICAL: Gross neurological examination did not reveal any focal deficits. SKIN: Cellulitis off the right lower extremity and patient has an Cristopher bandage wrap to the right lower extremity - Labs CBC & Chem 7: 05/01/20 18:49 05/04/20 07:17 Labs: Abnormal Lab Results - Last 24 Hours (Table) 05/03/20 Range/Units 08:57 C-Reactive Protein 154.9 H (<10.0) mg/L Microbiology - Last 24 Hours (Table) 05/01/20 18:34 Blood Culture - Preliminary Blood No Growth after 48 hours Assessment and Plan Plan: -Right legs cellulitis: Continue with IV ceftezole and will continue to monitor refer she is improving patient probably can be discharged tomorrow -Leukocytosis due to assessment 1 --Hypervolemic hyponatremia expected to improve with IV fluids, secondary to diuretics is alert except being held -Obesity Gastroesophageal reflux disease -Hyperlipidemia
--- NOTE | 2020-05-04 10:22 | CDI ---
Documentation Clarification Form Date: 05/04/2020 09:37:26 AM From: Jennifer Grey RN CCDS Admit Date: 05/04/2020 08:50:00 AM Patient Name: Jennifer Lewis Visit Number: [id number] Discharge Date: ATTENTION: The Clinical Documentation Specialists (CDI) and [facility] Coding Staff appreciate your assistance in clarifying documentation. Please respond to the clarification below the line at the bottom and electronically sign. The CDI & [facility] Coding staff will review the response and follow-up if needed. Please note: Queries are made part of the Legal Health Record. If you have any questions, please contact the author of this message via ITS. Dr. Shine Sepsis is documented in the ID Consult 05/02 History/Risk Factors: 39-year-old female presents to the ED with myalgias and feeling feverish at home with induration and swelling of right lower extremity Clinical Indicators: 05/01 Wbc 11.2, Lactic acid 1.3, Neutrophils # 8.6; 05/04 Blood cultures: no growth after 48 hours. 05/01 Vital signs on admission: B/P: 136/91; HR: 90; Temp: 101.4 F; RR: 18; SpO2 98% room air 05/02 H&P: Upon evaluation in ED patient was found to have significant erythema and induration and swelling of right lower extremity with elevated Wbc and Left shift. Treatment: 05/02 ID Consult: Patient admitted hospital with sepsis in this patient did have fever, tachycardia and elevated white count, source of acute right lower extremity cellulitis clinically doubts MRSA or gram-negative infection. Antibiotics: 05/01 Ceftriaxone Ivpb d/c 05/03; 05/01 Vancomycin ivpb Q 12 D/cd 05/03; 05/03 Cefazolin Ivpb Q8hr, Fluids 0.9 NS 130cc/hr In your professional opinion, please clarify if these findings signify one of the following conditions, whether the condition is POA, and cause, if known: Sepsis ruled out Sepsis poa Other, please specify Unable to determine Identify the (suspected) organism SIRS Criteria (2 or more of the following may indicate SIRS): -Temperature < 96.8F (36C) or > 101.0F (38.3C) -Heart Rate > 90 bpm -Respiratory Rate > 20 breaths/min or PaCO2 < 32 mmHg -White Blood Cell Count > 12,000 or < 4,000 cells/mm3 or > 10% bands -Lactate >2.0 mmol/L (>4.0 is equivalent to septic shock) (Last Revision: Apr Please refer to my documentation no additional documentation will be done MTDD
--- NOTE | 2020-05-04 16:55 | PN ---
PROGRESS NOTE DATE OF SERVICE: 05/04/2020 REASON FOR FOLLOWUP: Right lower extremity cellulitis. INTERVAL HISTORY: The patient is currently afebrile. Patient is breathing comfortably. Patient denies having any chest pain or shortness of breath or cough. No nausea, no vomiting. No abdominal pain. Right lower extremity swelling has decreased. PHYSICAL EXAMINATION: Blood pressure 124/78 with a pulse of 77, temperature is 98.4. She is 97% on room air. General description is a middle-aged female, lying in bed in no distress. RESPIRATORY SYSTEM: Unlabored breathing, clear to auscultation anteriorly. HEART: S1, S2. Regular rate and rhythm. ABDOMEN: Soft, no tenderness. Right leg swelling and redness has decreased. LABS: Creatinine 0.66. No CBC was done today. DIAGNOSTIC IMPRESSION AND PLAN: Patient with acute right lower extremity cellulitis in this patient have diffuse swelling and redness, likely streptococcal disease. Patient is currently covered with cefazolin to continue for 24 hours. Re-evaluate the leg tomorrow overall improvement. She will finish therapy with oral Keflex. Continue supportive care. Continue with . MMODL / IJN: [id number] /
--- NOTE | 2020-05-04 17:09 | P.PN ---
Subjective 39-year-old pleasant obese female is admitted for us and let us of the right leg and patient had similar cellulitis in the past as well. Patient is on ceftezole and which will be continued. 05/04/2020 Patient has improvement in the redness and cellulitis the right lower extremity but still has significant sunlight is because of which infectious Disease is recommending to continue IV antibiotics for 1 more day and the depending on improvement in her lightest patient probably will be discharged tomorrow. Her hyponatremia improved patient only takes Lasix on as-needed basis and barely takes it. Does use compression socks at home Constitutional: Denied any fatigue denied any fever. Cardio vascular: denied any chest pain, palpitations Gastrointestinal denied any nausea vomiting Pulmonary: Denied any shortness of breath cough Neurologic denied any new focal deficits All inpatient medications were reviewed and appropriate changes in these medications as dictated in the interval history and assessment and plan. Objective - Vital Signs Vital signs: Vital Signs Temp 98.4 F 05/04/20 15:00 Pulse 78 05/04/20 15:00 Resp 16 05/04/20 15:00 BP 124/78 05/04/20 15:00 Pulse Ox 97 05/04/20 15:00 Intake & Output 05/03/20 05/04/20 05/04/20 18:59 06:59 18:59 Intake Total 200 700 Balance 200 700 Intake: Oral 200 700 Other: Voiding Method Toilet Toilet # Voids 1 1 1 - Exam PHYSICAL EXAMINATION: GENERAL: The patient is alert and oriented x3, not in any acute distress. Obese. HEENT: Pupils are round and equally reacting to light. EOMI. No scleral icterus. No conjunctival pallor. Normocephalic, atraumatic. No pharyngeal erythema. No thyromegaly. CARDIOVASCULAR: S1 and S2 present. No murmurs, rubs, or gallops. PULMONARY: Chest is clear to auscultation, no wheezing or crackles. ABDOMEN: Soft, nontender, nondistended, normoactive bowel sounds. No palpable organomegaly. MUSCULOSKELETAL: No joint swelling or deformity. EXTREMITIES: No cyanosis, clubbing, bilateral lower leg swelling NEUROLOGICAL: Gross neurological examination did not reveal any focal deficits. SKIN: Cellulitis off the right lower extremity and patient has an Cristopher bandage wrap to the right lower extremity - Labs CBC & Chem 7: 05/01/20 18:49 05/04/20 07:17 Labs: Microbiology - Last 24 Hours (Table) 05/01/20 18:34 Blood Culture - Preliminary Blood No Growth after 48 hours Assessment and Plan Plan: -Right legs cellulitis: Continue with IV ceftezole and will continue to monitor refer she is improving patient probably can be discharged tomorrow -Leukocytosis due to assessment 1 --Hypovolemic hyponatremia expected to improve with IV fluids, secondary to diuretics are being held -Obesity Gastroesophageal reflux disease -Hyperlipidemia
[2020-05-04] MEDS: ATORVASTATIN 20 MG TAB PO SCH (21:39)
[2020-05-05] MEDS: SODIUM CHLORIDE 0.9% 1,000 ML IV SCH ×2 (06:01→10:07)
[2020-05-05 07:28] LABS: African American GFR (CKD) >90 (>60 ml/min/1.73 sqM); Non-African American GFR(CKD) >90 (>60 ml/min/1.73 sqM)
[2020-05-05 09:04] VITALS: BP 105/75; PULSE 79; TEMP 98.3
[2020-05-05] MEDS: hydrOXYzine HCL 25 MG TAB PO SCH (09:06)
[2020-05-05] MEDS: HYDROcodone/APAP 10-325MG 1 EACH TAB PO SCH (09:06)
--- NOTE | 2020-05-05 12:09 | PN ---
PROGRESS NOTE DATE OF SERVICE: 05/05/2020 REASON FOR FOLLOWUP: Right lower extremity cellulitis. INTERVAL COURSE: The patient is currently afebrile. Patient is breathing comfortably. The patient denies having any chest pain. No shortness of breath, no cough. No nausea. No abdominal pain. Overall pain and discomfort to the right leg has improved. PHYSICAL EXAMINATION: Her blood pressure is 105/75, pulse of 79, temperature 98.3, she is 96% on room air. General description is a middle-aged female, lying in bed in no distress. RESPIRATORY SYSTEM: Unlabored breathing, clear to auscultation anteriorly. HEART: S1, S2. Regular rate and rhythm. ABDOMEN: Soft, no tenderness. Right lower extremity swelling has decreased. LABS: No new labs have been obtained today. Blood culture has been negative. DIAGNOSTIC IMPRESSION AND PLAN: Patient with acute right lower extremity cellulitis in this patient who has shown clinical improvement. Plan is to finish therapy with oral Keflex. Prescription sent to pharmacy. May advise compression to keep the swelling down and prevent recurrent cellulitis. MMODL / IJN: [id number] /
--- NOTE | 2020-05-05 13:55 | P.DS ---
Providers Date of admission: 05/04/20 08:50 Attending physician: Say Damian Consults: 05/02/20 08:30 Consult Physician Routine Consulting Provider: Lan Craig Consult Reason/Comments: cellulitis RLE Do you want consulting provider notified?: Yes Primary care physician: [facility] Course: 39-year-old pleasant obese female is admitted for us and let us of the right leg and patient had similar cellulitis in the past as well. Patient is on ceftezole and which will be continued. 05/04/2020 Patient has improvement in the redness and cellulitis the right lower extremity but still has significant sunlight is because of which infectious Disease is recommending to continue IV antibiotics for 1 more day and the depending on improvement in her lightest patient probably will be discharged tomorrow. Her hyponatremia improved patient only takes Lasix on as-needed basis and barely takes it. Does use compression socks at home. 05/05/2020 Patient's alertness improved significantly. Patient is being switched to oral Keflex for 10 days and will be discharged today. And patient is high risk for recurrence allied as because of her BMI. Patient will be referred to bariatric surgery. PHYSICAL EXAMINATION: GENERAL: The patient is alert and oriented x3, not in any acute distress. Obese. HEENT: Pupils are round and equally reacting to light. EOMI. No scleral icterus. No conjunctival pallor. Normocephalic, atraumatic. No pharyngeal erythema. No thyromegaly. CARDIOVASCULAR: S1 and S2 present. No murmurs, rubs, or gallops. PULMONARY: Chest is clear to auscultation, no wheezing or crackles. ABDOMEN: Soft, nontender, nondistended, normoactive bowel sounds. No palpable organomegaly. MUSCULOSKELETAL: No joint swelling or deformity. EXTREMITIES: No cyanosis, clubbing, bilateral lower leg swelling NEUROLOGICAL: Gross neurological examination did not reveal any focal deficits. SKIN: Cellulitis off the right lower extremity and patient has an Cristopher bandage wrap to the right lower extremity Assessment and Plan Plan: -Right legs cellulitis: Improved significantly with Cefazolin, is being discharged on Keflex -Leukocytosis due to assessment 1 --Hypovolemic hyponatremia improved with IV fluids patient uses Lasix on as- needed basis at home for peripheral edema -Obesity Gastroesophageal reflux disease -Hyperlipidemia Patient Condition at Discharge: Serious Plan - Discharge Summary Discharge Rx Participant: No New Discharge Prescriptions: New Cephalexin [Keflex] 500 mg PO Q6HR 10 Days #40 cap Continue HYDROcodone/APAP 10-325MG [[place] 10-325] 1 tab PO TID Furosemide [Lasix] 20 mg PO DAILY PRN PRN Reason: fluid retention Pantoprazole [Protonix] 40 mg PO DAILY PRN PRN Reason: acid reflux Cyclobenzaprine [Flexeril] 10 mg PO BID Cetirizine HCl [Zyrtec] 10 mg PO DAILY Atorvastatin [Lipitor] 20 mg PO HS hydrOXYzine HCL 25 mg PO TID Discharge Medication List Furosemide [Lasix] 20 mg PO DAILY PRN 08/21/17 [History] HYDROcodone/APAP 10-325MG [[place] 10-325] 1 tab PO TID 08/21/17 [History] Pantoprazole [Protonix] 40 mg PO DAILY PRN 08/21/17 [History] Atorvastatin [Lipitor] 20 mg PO HS 05/01/20 [History] Cetirizine HCl [Zyrtec] 10 mg PO DAILY 05/01/20 [History] Cyclobenzaprine [Flexeril] 10 mg PO BID 05/01/20 [History] hydrOXYzine HCL 25 mg PO TID 05/01/20 [History] Cephalexin [Keflex] 500 mg PO Q6HR 10 Days #40 cap 05/05/20 [Rx] Follow up Appointment(s)/Referral(s): Eloisa Renae MD [Primary Care Provider] - 3 Days Lan Craig MD [STAFF PHYSICIAN] - 1 Week [place], [place] [NON-STAFF] - 2 Weeks Discharge Disposition: HOME SELF-CARE
== END 2020-05-05 15:23 | disposition home or self-care (01) | DRG 603 ==
LOC: EC 18:15 → 1SOBS 20:43 → OBSVTOIN 05-04 08:50
PROVIDERS: ADMIT Hospitalist; ATTEND Hospitalist
DX: L03.115 Cellulitis of right lower limb (principal); Z68.43 Body mass index [BMI] 50.0-59.9, adult; E87.1 Hypo-osmolality and hyponatremia; Z20.828 Contact with and (suspected) exposure to other viral communicable diseases; E66.01 Morbid (severe) obesity due to excess calories; E78.5 Hyperlipidemia, unspecified; E86.1 Hypovolemia; Z71.3 Dietary counseling and surveillance; F17.210 Nicotine dependence, cigarettes, uncomplicated; J30.2 Other seasonal allergic rhinitis; K21.9 Gastro-esophageal reflux disease without esophagitis; Z79.899 Other long term (current) drug therapy; Z86.14 Personal history of Methicillin resistant Staphylococcus aureus infection; E78.00 Pure hypercholesterolemia, unspecified
CPT/HCPCS: 36415; 80048; 80053; 81001; 81025; 82565; 83605; 84145; 85025; 86140; 87040; 96365; 96367; 99285

== ENCOUNTER 2020-10-14 08:58 | Day surgery (SDC) | payer OTHER ==
[2020-10-12 10:16] VITALS: BMI 56.5
[~2020-10-14 08:58] MED LIST changes: -DEXAMETHASONE SOD PHOSPHATE 10 MG/ML 1 ML VIAL IV ONE; -MIDAZOLAM 2 MG/2 ML VIAL IV PRN; -ONDANSETRON 4 MG/2 ML VIAL IVP ONE
[2020-10-14 09:40] VITALS: RESP 16; TEMP 97.1
[2020-10-14] MEDS ORDERED: LIDOCAINE 1% (10MG/ML) FOR IV START INTRADERMA ONE (09:44)
[2020-10-14] MEDS ORDERED: ONDANSETRON 4 MG/2 ML VIAL ONE (09:48)
[2020-10-14] MEDS ORDERED: ONDANSETRON 4 MG/2 ML VIAL IVP ONE (09:49)
[2020-10-14] MEDS ORDERED: LIDOCAINE 1% INJ 10MG/ML (20 ML MDV) ONE (10:31)
[2020-10-14] MEDS ORDERED: MIDAZOLAM 2 MG/2 ML VIAL ONE (10:31)
[2020-10-14] MEDS ORDERED: KETAMINE 10 MG/ML 20 ML VIAL ONE (10:31)
[2020-10-14] MEDS ORDERED: GLYCOPYRROLATE 0.2 MG/ML 2 ML VIAL ONE (10:31)
[2020-10-14] MEDS ORDERED: PROPOFOL 10 MG/ML 20 ML VIAL IV ONE (10:31)
--- NOTE | 2020-10-14 10:58 | P.PCN ---
Date of Procedure: 10/14/20 Description of Procedure: BRIEF HISTORY: Patient is a 40-year-old female presenting for outpatient EGD for evaluation of epigastric discomfort. She reports chronic history of reflux. Intermittent epigastric abdominal pain and discomfort. Intermittent episodes of emesis. On Protonix daily which is not helping. PROCEDURE PERFORMED: Esophagogastroduodenoscopy with biopsy, hot snare polypectomy and Endo Clip placement 2. PREOPERATIVE DIAGNOSIS: Epigastric abdominal pain, GERD. ESTIMATED BLOOD LOSS: Minimal. IV sedation per anesthesia. PROCEDURE: After informed consent was obtained, the patient was brought into the endoscopy unit. IV sedation was administered by Anesthesia under continuous monitoring. Initially the Olympus GIF-190 video endoscope was inserted into the mouth. Esophagus intubated without any difficulty. It was gradually advanced into the stomach and duodenum and carefully examined. The bulb and the second part of the duodenum appeared normal, with biopsies taken. The scope at this time was withdrawn to the stomach, adequately insufflated with air, and upon careful examination, mucosa of the antrum, body, cardia and the fundus appeared normal, except for some mild scattered erythema in the antrum and body suggestive of mild gastritis with biopsies taken. There was also an 8 mm sessile polyp in the antrum removed with hot snare polypectomy and with Endo Clip placement 2 for hemostasis after the procedure. The scope was then withdrawn into the esophagus. The GE junction was located at 39 cm from the incisors and biopsied. The esophagus appeared normal. There were no erosions or ulcerations seen and the patient tolerated the procedure well. IMPRESSION: 1. Antral polyp removed with hot snare polypectomy, Endo Clip placement 2 for hemostasis. 2. Mild gastritis. 3. Biopsies of the duodenum, antrum body and GE junction. RECOMMENDATIONS: The findings of this examination were discussed with the patient and her family. Okay to resume diet. Okay to resume medications. Await pathology from polypectomy and biopsies. Follow up in the GI clinic as scheduled. Continue current medical management..
[2020-10-14 11:21] VITALS: BP 134/84; PULSE 60
== END 2020-10-14 11:58 | disposition home or self-care (01) ==
LOC: ORWHC2ENDO 08:58
PROVIDERS: ATTEND Internal Medicine
DX: K21.00 Gastro-esophageal reflux disease with esophagitis, without bleeding (principal); K31.9 Disease of stomach and duodenum, unspecified; K31.7 Polyp of stomach and duodenum; K25.9 Gastric ulcer, unspecified as acute or chronic, without hemorrhage or perforation; K29.70 Gastritis, unspecified, without bleeding; E78.5 Hyperlipidemia, unspecified; F17.200 Nicotine dependence, unspecified, uncomplicated; E66.01 Morbid (severe) obesity due to excess calories; Z79.899 Other long term (current) drug therapy; Z79.891 Long term (current) use of opiate analgesic; Z90.49 Acquired absence of other specified parts of digestive tract; Z90.89 Acquired absence of other organs; Z98.890 Other specified postprocedural states; Z68.43 Body mass index [BMI] 50.0-59.9, adult
CPT/HCPCS: 81025; 88305; 43239; 43251; J2250; J2405; J2001; J2704; 43247; 43255

== ENCOUNTER → 2020-11-10 | Outpatient (CLI) | payer OTHER ==
--- NOTE | 2020-11-11 11:18 | MM ---
Reason for exam: screening (asymptomatic). Last mammogram was performed 2 years and 10 months ago. History: Took hormonal contraceptives for 1 year beginning at age 22. Physical Findings: A clinical breast exam by your physician is recommended on an annual basis and results should be correlated with mammographic findings. MG Screening Mammo w CAD Bilateral CC and MLO view(s) were taken. XCCL view(s) were taken of the left breast. Prior study comparison: December 28, 2017, bilateral MG screening mammo w CAD. There are scattered fibroglandular densities. There is no discrete abnormality. ASSESSMENT: Negative, BI-RAD 1 RECOMMENDATION: Routine screening mammogram of both breasts in 1 year.
== END ==
LOC: RADMAMWWP 10:59
PROVIDERS: ATTEND Family Medicine
DX: Z12.31 Encounter for screening mammogram for malignant neoplasm of breast (principal)
CPT/HCPCS: 77067

== ENCOUNTER → 2021-09-28 | Outpatient (CLI) | payer OTHER ==
--- NOTE | 2021-09-28 13:55 | US ---
EXAMINATION TYPE: US kidneys/renal and bladder DATE OF EXAM: 09/28/2021 COMPARISON: NONE CLINICAL HISTORY: R32 Urinary incontinence. Patient states having bladder trouble. EXAM MEASUREMENTS: Right Kidney: 10.2 x 5.3 x 4.9 cm Left Kidney: 11.5 x 5.0 x 5.5 cm Limited visualization due to patient body habitus Right Kidney: No hydronephrosis or masses seen Left Kidney: No hydronephrosis or masses seen Bladder: distended, anechoic Bilateral Jets seen There is no evidence for hydronephrosis at this point in time. No nephrolithiasis is seen. No sreekanth s are identified. The urinary bladder is anechoic. Bilateral ureteral jets are seen. IMPRESSION: Unremarkable study
== END | disposition home or self-care (01) ==
LOC: RADUSWWP 12:48
PROVIDERS: ATTEND Family Medicine
DX: R32 Unspecified urinary incontinence (principal)
CPT/HCPCS: 76770

== ENCOUNTER → 2023-04-04 | Outpatient (CLI) | payer OTHER ==
--- NOTE | 2023-04-05 20:14 | MM ---
Reason for Exam: Screening (asymptomatic). Last mammogram was performed 2 year(s) and 5 month(s) ago. Patient History: Menarche at age 14. First Full-Term at age 20. Premenopausal. Hormonal Contraceptives for 1 year from age 22 until age 23. Risk Values: Nunu 5 year model risk: 0.6%. NCI Lifetime model risk: 8.0%. Prior Study Comparison: 12/28/2017 Bilateral Screening Mammogram, [facility]. 11/10/2020 Bilateral Screening Mammogram, [facility]. Tissue Density: The breast tissue is almost entirely fat. Findings: Analyzed By CAD. There is no suspicious group of microcalcifications or new suspicious mass in either breast. Overall Assessment: Negative, BI-RAD 1 Management: Screening Mammogram of both breasts in 1 year. . Patient should continue monthly self-breast exams. A clinical breast exam by your physician is recommended on an annual basis. This exam should not preclude additional follow-up of suspicious palpable abnormalities. Note on Nunu scores and lifetime risk: 1. A Nunu score greater than 3% is considered moderate risk. If this is the case, consider specialist referral to assess eligibility for a risk reducing agent. 2. If overall lifetime risk for the development of breast cancer is 20% or higher, the patient may qualify for future screening with alternating mammogram and breast MRI. Electronically signed and approved by: Cornelius Abreu M.D. Radiologist
== END | disposition home or self-care (01) ==
LOC: RADMAMWWP 09:29
PROVIDERS: ATTEND Obstetrics & Gynecology
DX: Z12.31 Encounter for screening mammogram for malignant neoplasm of breast (principal)
CPT/HCPCS: 77067

== ENCOUNTER → 2024-06-05 | Outpatient (CLI) | payer OTHER ==
--- NOTE | 2024-06-06 22:40 | XR ---
EXAMINATION TYPE: XR ankle limited LT DATE OF EXAM: 06/05/2024 4:47 PM COMPARISON: None. CLINICAL INDICATION: Female, 43 years old with history of M79.672 PAIN IN LEFT FOOT, TECHNIQUE: XR ankle limited LT view(s) obtained. FINDINGS: 2 view left ankle. Ankle mortise appears intact. There is flattening of the plantar arch. Large plant ar and small Achilles tendon calcaneal heel spur present. No acute fracture evident. IMPRESSION: 1. Flattening of the plantar arch in the lateral projection. Calcaneal heel spurs are present. 2. No acute osseous abnormality 2V left ankle [facility], Workstation: [facility] [place], 06/06/2024 10:37 PM
--- NOTE | 2024-06-06 22:43 | XR ---
EXAMINATION TYPE: XR foot complete LT DATE OF EXAM: 06/05/2024 4:47 PM COMPARISON: None. CLINICAL INDICATION: Female, 43 years old with history of M79.672 PAIN IN LEFT FOOT, TECHNIQUE: XR foot complete LT view(s) obtained. FINDINGS: 3 views of the left foot were obtained. There is varus deformity of the distal third fourth fifth dig its. Joint spaces appear preserved. Soft tissue swelling over the distal digits is present. Plantar a nd Achilles tendon calcaneal heel spurs are present. Plantar arch flattening is evident IMPRESSION: 1. Flattening of plantar arch. 2. Calcaneal heel spurs [facility], Workstation: [facility], 06/06/2024 10:41 PM
== END | disposition home or self-care (01) ==
LOC: RADXRMAIN 16:03
PROVIDERS: ATTEND Family Medicine
DX: M77.32 Calcaneal spur, left foot (principal); M21.42 Flat foot [pes planus] (acquired), left foot